=== PATIENT | male | born 1955 | race African-American/Black ===

== ENCOUNTER 2018-05-13 17:16 | Emergency (ER) | payer BC ==
[2018-05-13 17:47] LABS: Bilirubin Negative (Negative); Blood, Urine Negative (Negative); Clarity CLEAR (Clear); Glucose, Urine (Dipstick) Negative (Negative); Leukocyte Negative (Negative); Nitrite Negative (Negative); Protein, Urine (Dipstick) Negative (Neg-Trace); Specific Gravity, Urine 1.004 (1.002-1.036); Urobilinogen 0.2 mg/dL (0.2-1.0); pH, Urine 5.5 (5.0-9.0)
[2018-05-13 18:14] LABS: #Basophils 0.1 thou/uL (0.0-0.2); #Eosinphils 0.1 thou/uL (0.0-0.7); #Lymphocytes 2.4 thou/uL (1.20-3.40); #Monocytes 0.7 thou/uL (0.11-0.59); #Neutrophils 3.2 thou/uL (1.40-6.50); %Basophils 1.1 % (0.0-1.0); %Lymphocytes 37.1 % (21.0-51.0); %Monocytes 10.5 % (0.0-10.0); %Neutrophils 50.3 % (42.0-75.0); Hemoglobin 12.9 g/dL (14.0-18.0); Mean Corpuscular Hemoglobin 29.3 pg (27.0-31.0); Mean Corpuscular Volume 88.9 fL (78.0-98.0); Platelet Count 238 thou/uL (130-400); RBC Distribution Width 12.5 % (11.5-14.5); Red Blood Cell (RBC) Count 4.41 mill/uL (4.70-6.10); White Blood Cell (WBC) Count 6.3 thou/uL (4.8-10.8)
[2018-05-13 18:36] LABS: ALT (SGPT) 31 U/L (8-55); AST (SGOT) 25 U/L (5-34); Albumin 4.2 g/dL (3.4-4.8); Alkaline Phosphatase 30 U/L (40-150); Anion Gap 13 mmol/L (10-20); BUN (Urea Nitrogen) 8 mg/dL (8.4-25.7); Bilirubin, Total 0.5 mg/dL (0.2-1.2); Calc. Creatinine Clearance 0 mL/min (70-130); Calcium 9.3 mg/dL (7.8-10.44); Carbon Dioxide 25 mmol/L (23-31); Chloride 100 mmol/L (98-107); Estimated GFR-MDRD 85; Glucose 87 mg/dL (80-115); Potassium 4.2 mmol/L (3.5-5.1); Protein, Total 7.2 g/dL (5.8-8.1); Sodium 134 mmol/L (136-145)
[2018-05-13 18:41] LABS: Troponin I Less than 0.010 ng/mL (< 0.028)
[2018-05-13] MEDS ORDERED: diphenhydrAMINE 50 MG/ML VIAL ONE (20:59)
[2018-05-13] MEDS ORDERED: Metoclopramide HCl 10 MG/2 ML VIAL ONE (20:59)
--- NOTE | 2018-05-13 22:02 | CT ---
NONCONTRAST HEAD CT: 05/13/18 COMPARISON: 06/11/06. HISTORY: Headache. FINDINGS: No parenchymal hemorrhage. No extra-axial hematoma. No midline shift. Basilar cisterns are patent. Br ain volume slightly less than expected for patient's age. There are extensive white matter hypodensit ies which are nonspecific and may represent chronic small vessel ischemic changes of the white matter . Other etiologies cannot be excluded. Further evaluation with brain MRI is recommended. 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 Cavernous carotid atherosclerosi s. Adequate aeration of the sinuses and mastoid air cells. Intact calvarium. IMPRESSION: 1. Brain volume, less than expected for patient's age. 2. Extensive white matter hypodensities which may represent chronic small vessel ischemic change . Other white matter etiologies cannot be excluded. Consider MRI for further evaluation. POS: JONATHAN
== END 2018-05-13 23:09 | disposition home or self-care (01) ==
LOC: ERS 17:16
DX: R51 Headache (principal); I25.2 Old myocardial infarction; E78.5 Hyperlipidemia, unspecified; I10 Essential (primary) hypertension; I73.9 Peripheral vascular disease, unspecified; Z79.899 Other long term (current) drug therapy; Z79.82 Long term (current) use of aspirin
CPT/HCPCS: 36415; 70450; 80053; 81003; 82553; 84484; 85025; 93005; 96361; 96374; 96375; J1200; J2765

== ENCOUNTER 2018-05-18 09:38 | Emergency (ER) | payer BC ==
[2018-05-18] MEDS ORDERED: Metoclopramide HCl 10 MG/2 ML VIAL ONE (09:54)
[2018-05-18] MEDS ORDERED: diphenhydrAMINE 50 MG/ML VIAL ONE (09:54)
[2018-05-18] MEDS ORDERED: Meclizine HCl 25 MG TAB ONE (11:38)
[2018-05-18] MEDS ORDERED: Promethazine HCl 25 MG/ML VIAL ONE (12:36)
[2018-05-18] MEDS ORDERED: Ketorolac Tromethamine 30 MG/ML VIAL ONE (13:48)
== END 2018-05-18 14:14 | disposition home or self-care (01) ==
LOC: ERS 09:38
DX: R42 Dizziness and giddiness (principal); R51 Headache; I25.2 Old myocardial infarction; E78.5 Hyperlipidemia, unspecified; I10 Essential (primary) hypertension; Z79.82 Long term (current) use of aspirin; Z79.899 Other long term (current) drug therapy
CPT/HCPCS: 96361; 96365; 96375; J1200; J1885; J2550; J2765

== ENCOUNTER 2018-09-01 14:21 | Emergency (ER) | payer MEDICARE, BC ==
--- NOTE | 2018-09-01 16:12 | CT ---
NONCONTRAST CT HEAD: Date: 09/01/18 HISTORY: Dizziness. Headache. COMPARISON: 05/13/18. FINDINGS: Again noted are chronic small vessel ischemic changes and cerebral volume loss, which have not signif icantly progressed when compared to the prior exam. There is no evidence of an acute cortical infarct ion, hemorrhage, mass effect, or midline shift. There are dilated perivascular spaces versus remote l acunar infarctions in the inferior aspect of the left basal ganglia. Ventricular system is normal in size, shape, and position for the degree of sulcal atrophy. There has been no interval change compare d to the prior exam. IMPRESSION: 1. No acute intracranial abnormality is demonstrated. 2. Stable chronic small vessel ischemic changes and cerebral volume loss. 3. Remote lacunar infarctions versus dilated perivascular spaces in the inferior aspect of the left basal ganglia. POS: JONATHAN
[2018-09-01 16:22] LABS: #Basophils 0.1 thou/uL (0.0-0.2); #Eosinphils 0.1 thou/uL (0.0-0.7); #Lymphocytes 1.5 thou/uL (1.20-3.40); #Monocytes 0.6 thou/uL (0.11-0.59); #Neutrophils 3.3 thou/uL (1.40-6.50); %Basophils 1.3 % (0.0-1.0); %Eosinophils 1.1 % (0.0-10.0); %Lymphocytes 26.7 % (21.0-51.0); %Monocytes 10.2 % (0.0-10.0); %Neutrophils 60.6 % (42.0-75.0); Hemoglobin 14.6 g/dL (14.0-18.0); Mean Corpuscular Hemoglobin 28.8 pg (27.0-31.0); Platelet Count 327 thou/uL (130-400); RBC Distribution Width 12.8 % (11.5-14.5); Red Blood Cell (RBC) Count 5.06 mill/uL (4.70-6.10); White Blood Cell (WBC) Count 5.5 thou/uL (4.8-10.8)
[2018-09-01 16:42] LABS: ALT (SGPT) 19 U/L (8-55); AST (SGOT) 19 U/L (5-34); Albumin 4.7 g/dL (3.4-4.8); Alkaline Phosphatase 33 U/L (40-150); Anion Gap 14 mmol/L (10-20); BUN (Urea Nitrogen) 11 mg/dL (8.4-25.7); Bilirubin, Total 0.6 mg/dL (0.2-1.2); Calc. Creatinine Clearance 0 mL/min (70-130); Calcium 10.1 mg/dL (7.8-10.44); Carbon Dioxide 24 mmol/L (23-31); Chloride 100 mmol/L (98-107); Estimated GFR-MDRD 72; Globulin 3.4 g/dL (2.4-3.5); Glucose 95 mg/dL (80-115); Potassium 4.7 mmol/L (3.5-5.1); Protein, Total 8.1 g/dL (5.8-8.1); Sodium 133 mmol/L (136-145)
[2018-09-01 16:44] LABS: CKMB 0.9 ng/mL (0-6.6); Troponin I Less than 0.010 ng/mL (< 0.028)
[2018-09-01 17:29] LABS: Bilirubin Negative (Negative); Blood, Urine Negative (Negative); Clarity CLEAR (Clear); Glucose, Urine (Dipstick) Negative (Negative); Leukocyte Trace (Negative); Nitrite Negative (Negative); Protein, Urine (Dipstick) Negative (Neg-Trace); Specific Gravity, Urine 1.008 (1.002-1.036); Urobilinogen 0.2 mg/dL (0.2-1.0)
[2018-09-01 17:32] LABS: Bacteria/HPF None Seen HPF (None Seen); Hyaline Casts/LPF 0-3 HYALINE CAST LPF (0-3 Hyaline); RBC/HPF None Seen HPF (0-3); Squamous Epithelial None Seen HPF (0-3); WBC/HPF 0-3 HPF (0-3)
== END 2018-09-01 18:21 | disposition home or self-care (01) ==
LOC: ERS 14:21
DX: G45.9 Transient cerebral ischemic attack, unspecified (principal); E87.1 Hypo-osmolality and hyponatremia; I25.2 Old myocardial infarction; E78.5 Hyperlipidemia, unspecified; I10 Essential (primary) hypertension; Z79.82 Long term (current) use of aspirin; Z79.899 Other long term (current) drug therapy
CPT/HCPCS: 36415; 70450; 80053; 81003; 81015; 82553; 84484; 85025; 93005

== ENCOUNTER 2018-09-19 08:21 | Emergency (ER) | payer MEDICARE, BC ==
[2018-09-19 08:58] LABS: #Basophils 0.1 thou/uL (0.0-0.2); #Eosinphils 0.1 thou/uL (0.0-0.7); #Lymphocytes 1.9 thou/uL (1.20-3.40); #Monocytes 0.5 thou/uL (0.11-0.59); #Neutrophils 2.8 thou/uL (1.40-6.50); %Eosinophils 1.5 % (0.0-10.0); %Lymphocytes 35.3 % (21.0-51.0); %Monocytes 8.8 % (0.0-10.0); %Neutrophils 52.5 % (42.0-75.0); Hemoglobin 14.5 g/dL (14.0-18.0); Mean Corpuscular HGB CONC 32.3 g/dL (32.0-36.0); Mean Corpuscular Hemoglobin 28.6 pg (27.0-31.0); Mean Corpuscular Volume 88.6 fL (78.0-98.0); Mean Platelet Volume 7.7 fL (7.4-10.4); Platelet Count 352 thou/uL (130-400); RBC Distribution Width 12.6 % (11.5-14.5); Red Blood Cell (RBC) Count 5.07 mill/uL (4.70-6.10); White Blood Cell (WBC) Count 5.4 thou/uL (4.8-10.8)
[2018-09-19 09:27] LABS: CKMB 0.8 ng/mL (0-6.6); Troponin I Less than 0.010 ng/mL (< 0.028)
[2018-09-19 09:48] LABS: Bilirubin Negative (Negative); Blood, Urine Negative (Negative); Clarity CLEAR (Clear); Glucose, Urine (Dipstick) Negative (Negative); Leukocyte Trace (Negative); Nitrite Negative (Negative); Protein, Urine (Dipstick) Negative (Neg-Trace); Specific Gravity, Urine 1.002 (1.002-1.036); Urobilinogen 0.2 mg/dL (0.2-1.0)
[2018-09-19 09:49] LABS: Bacteria/HPF None Seen HPF (None Seen); Hyaline Casts/LPF 0-3 HYALINE CAST LPF (0-3 Hyaline); RBC/HPF None Seen HPF (0-3); Squamous Epithelial None Seen HPF (0-3); WBC/HPF 0-3 HPF (0-3)
[2018-09-19 09:55] LABS: ALT (SGPT) 15 U/L (8-55); AST (SGOT) 23 U/L (5-34); Albumin 4.4 g/dL (3.4-4.8); Alkaline Phosphatase 33 U/L (40-150); Anion Gap 16 mmol/L (10-20); BUN (Urea Nitrogen) 9 mg/dL (8.4-25.7); Bilirubin, Total 0.4 mg/dL (0.2-1.2); Calc. Creatinine Clearance 0 mL/min (70-130); Calcium 9.6 mg/dL (7.8-10.44); Carbon Dioxide 23 mmol/L (23-31); Chloride 101 mmol/L (98-107); Estimated GFR-MDRD 68; Globulin 3.8 g/dL (2.4-3.5); Glucose 85 mg/dL (80-115); Protein, Total 8.2 g/dL (5.8-8.1); Sodium 135 mmol/L (136-145)
== END 2018-09-19 14:49 | disposition home or self-care (01) ==
LOC: ERS 08:21
DX: R42 Dizziness and giddiness (principal); I25.2 Old myocardial infarction; E78.5 Hyperlipidemia, unspecified; I10 Essential (primary) hypertension; I73.9 Peripheral vascular disease, unspecified; Z79.899 Other long term (current) drug therapy; Z79.82 Long term (current) use of aspirin
CPT/HCPCS: 80053; 81003; 81015; 82553; 84484; 85025; 93005

== ENCOUNTER 2020-11-23 08:11 | Emergency (ER) | payer MEDICARE, BC ==
[2020-11-23] MEDS ORDERED: Meclizine HCl 25 MG TAB ONE (08:31)
--- NOTE | 2020-11-23 08:37 | CT ---
Exam: Head CT without contrast HISTORY: Dizziness, x1 week. Altered mental status COMPARISON: 09/01/2018 FINDINGS: Hemorrhage: No intraparenchymal hemorrhage or extra-axial hematoma. Brain parenchyma: Cortical pat-white matter differentiation is preserved. No mass effect or midline shift. Basilar cisterns are patent.Chronic small vessel ischemic changes white matter. Ventricular system: Ventricles and sulci are patent and symmetric. Calvarium: Intact. Sinuses and mastoid air cells: Adequate aeration. IMPRESSION: No acute intracranial process.
[2020-11-23 09:13] LABS: ALT (SGPT) 16 U/L (8-55); AST (SGOT) 14 U/L (5-34); Albumin 4.1 g/dL (3.4-4.8); Alkaline Phosphatase 42 U/L (40-110); Anion Gap 13 mmol/L (10-20); BUN (Urea Nitrogen) 11 mg/dL (8.4-25.7); Bilirubin, Total 0.3 mg/dL (0.2-1.2); Calc. Creatinine Clearance 0 mL/min (70-130); Calcium 8.9 mg/dL (7.8-10.44); Carbon Dioxide 26 mmol/L (23-31); Chloride 99 mmol/L (98-107); Globulin 3.3 g/dL (2.4-3.5); Glucose 104 mg/dL (80-115); Potassium 4.1 mmol/L (3.5-5.1); Protein, Total 7.4 g/dL (5.8-8.1); Sodium 134 mmol/L (136-145)
[2020-11-23 09:16] LABS: #Basophils 0.1 thou/uL (0.0-0.2); #Eosinphils 0.1 thou/uL (0.0-0.7); #Lymphocytes 1.5 thou/uL (1.20-3.40); #Monocytes 0.7 thou/uL (0.11-0.59); #Neutrophils 2.9 thou/uL (1.40-6.50); %Basophils 1.2 % (0.0-1.0); %Eosinophils 1.7 % (0.0-10.0); %Lymphocytes 28.4 % (21.0-51.0); %Monocytes 12.6 % (0.0-10.0); %Neutrophils 56.1 % (42.0-75.0); Hemoglobin 14.4 g/dL (14.0-18.0); Mean Corpuscular HGB CONC 33.3 g/dL (32.0-36.0); Mean Corpuscular Hemoglobin 29.5 pg (27.0-31.0); Mean Corpuscular Volume 88.7 fL (78.0-98.0); Mean Platelet Volume 7.1 fL (7.4-10.4); Platelet Count 338 thou/uL (130-400); RBC Distribution Width 12.3 % (11.5-14.5); Red Blood Cell (RBC) Count 4.87 mill/uL (4.70-6.10); White Blood Cell (WBC) Count 5.3 thou/uL (4.8-10.8)
== END 2020-11-23 09:37 | disposition home or self-care (01) ==
LOC: ERS 08:11
DX: R42 Dizziness and giddiness (principal); I25.2 Old myocardial infarction; E78.5 Hyperlipidemia, unspecified; I10 Essential (primary) hypertension; Z79.899 Other long term (current) drug therapy; Z79.82 Long term (current) use of aspirin
CPT/HCPCS: 36415; 70450; 80053; 84484; 85025; 93005

== ENCOUNTER 2021-01-24 06:42 | Emergency (ER) | payer MEDICARE, BC ==
[2021-01-24] MEDS ORDERED: Acetaminophen 325 MG TAB ONE (07:04)
== END 2021-01-24 07:15 | disposition home or self-care (01) ==
LOC: ERS 06:42
DX: G89.29 Other chronic pain (principal); M25.562 Pain in left knee; I25.2 Old myocardial infarction; E78.5 Hyperlipidemia, unspecified; E78.00 Pure hypercholesterolemia, unspecified; I10 Essential (primary) hypertension; I73.9 Peripheral vascular disease, unspecified; Z87.19 Personal history of other diseases of the digestive system
CPT/HCPCS: 99281

== ENCOUNTER 2021-10-08 14:43 | Inpatient (IN) | payer MEDICARE, BC ==
[2021-10-08 15:38] LABS: Hemoglobin 11.5 g/dL (14.0-18.0); Mean Corpuscular HGB CONC 34.2 g/dL (32.0-36.0); Mean Corpuscular Hemoglobin 28.2 pg (27.0-31.0); Mean Corpuscular Volume 82.4 fL (78.0-98.0); Red Blood Cell (RBC) Count 4.07 mill/uL (4.70-6.10); White Blood Cell (WBC) Count 18.2 thou/uL (4.8-10.8)
[2021-10-08 15:40] LABS: ALT (SGPT) 30 U/L (8-55); AST (SGOT) 20 U/L (5-34); Albumin 3.8 g/dL (3.4-4.8); Alkaline Phosphatase 91 U/L (40-110); Anion Gap 19 mmol/L (10-20); BUN (Urea Nitrogen) 25 mg/dL (8.4-25.7); Bilirubin, Total 0.9 mg/dL (0.2-1.2); Calc. Creatinine Clearance 0 mL/min (70-130); Calcium 9.6 mg/dL (7.8-10.44); Carbon Dioxide 20 mmol/L (23-31); Chloride 97 mmol/L (98-107); Globulin 4.3 g/dL (2.4-3.5); Glucose 155 mg/dL (80-115); Potassium 4.4 mmol/L (3.5-5.1); Protein, Total 8.1 g/dL (5.8-8.1); Sodium 132 mmol/L (136-145)
[2021-10-08 16:00] LABS: #Basophils 0.1 thou/uL (0.0-0.2); #Eosinphils 0.1 thou/uL (0.0-0.7); #Lymphocytes 1.1 thou/uL (1.20-3.40); %Basophils 0.4 % (0.0-1.0); %Eosinophils 0.4 % (0.0-10.0); %Monocytes 5.2 % (0.0-10.0); Mean Platelet Volume 6.4 fL (7.4-10.4); Platelet Count 1283 thou/uL (130-400); Reflex for Review?? YES
[2021-10-08] MEDS ORDERED: cefTRIAXone\\ROCEPHIN 1 GM VIAL ONE (16:51)
[2021-10-08 17:10] LABS: Bilirubin Negative (Negative); Blood, Urine Trace (Negative); Clarity Turbid (Clear); Glucose, Urine (Dipstick) Normal (Negative); Ketone, Urine Negative (Negative); Leukocyte Negative Leu/uL (Negative); Nitrite Negative (Negative); Protein, Urine (Dipstick) 30 mg/dL (Neg-Trace); RBC/HPF 0-3 HPF (0-3); Squamous Epithelial 0-3 HPF (0-3); WBC/HPF None Seen HPF (0-3)
[2021-10-08 17:11] LABS: Bacteria/HPF 1+ HPF (None Seen)
[2021-10-08 17:15] LABS: Amphetamine Not Detected (NotDetected); Barbiturates Screen Not Detected (NotDetected); Benzodiazepine Screen Not Detected (NotDetected); Cocaine Metabolite Screen Not Detected (NotDetected); Methadone Not Detected (NotDetected); Methamphetamine Not Detected (NotDetected); Opiate Screen Not Detected (NotDetected); Oxycodone Screen Detected (NotDetected); Phencyclidine (PCP) Not Detected (NotDetected); THC/Cannabinoid Screen Not Detected (NotDetected); Tricyclic Screen Not Detected (NotDetected)
[2021-10-08] MEDS ORDERED: Vancomycin 1 GM/200 ML BAG ONE (17:48)
[2021-10-08] MEDS ORDERED: Multivitamins, Adult 10 ML, Thiamine HCl 100 MG, Folic Acid 1 MG in Dextrose 5 %-0.45 %... IV SCH (18:00)
[2021-10-08 18:18] LABS: Lactic Acid 1.8 mmol/L (0.5-2.2)
[2021-10-08 18:19] LABS: #Lymphocytes 0.9 thou/uL (1.20-3.40); #Monocytes 1.1 thou/uL (0.11-0.59); #Neutrophils 16.4 thou/uL (1.40-6.50); %Eosinophils 0.1 % (0.0-10.0); %Monocytes 5.9 % (0.0-10.0); Hemoglobin 9.8 g/dL (14.0-18.0); Mean Corpuscular HGB CONC 32.8 g/dL (32.0-36.0); Mean Corpuscular Hemoglobin 27.5 pg (27.0-31.0); Mean Corpuscular Volume 83.7 fL (78.0-98.0); Mean Platelet Volume 6.3 fL (7.4-10.4); Platelet Count 1131 thou/uL (130-400); RBC Distribution Width 16.1 % (11.5-14.5); Red Blood Cell (RBC) Count 3.57 mill/uL (4.70-6.10); White Blood Cell (WBC) Count 18.4 thou/uL (4.8-10.8)
[2021-10-08] MEDS ORDERED: Bisacodyl 5 MG TAB PO PRN (18:30)
[2021-10-08] MEDS ORDERED: Senokot S 8.6-50 MG TAB PO PRN (18:30)
[2021-10-08] MEDS ORDERED: Ondansetron PF 4 MG/2 ML Vial IVP PRN (18:30)
[2021-10-08] MEDS ORDERED: hydrALAZINE 20 MG/ML VIAL SLOW IVP PRN (18:35)
[2021-10-08] MEDS: Sodium Chloride 0.9% 1,000 ML IV SCH (21:30)
[2021-10-08] MEDS ORDERED: Lorazepam 1 MG TAB PO PRN (21:41)
[2021-10-08] MEDS ORDERED: Lorazepam 2 MG/ML VIAL IM PRN (21:41)
[2021-10-08] MEDS ORDERED: Electrolyte Replacement Protocol 1 EACH FS SCH (21:45)
[2021-10-08 22:23] VITALS: BMI 21.2
[2021-10-08] MEDS ORDERED: Famotidine/PF 20 mg/2ml Vial SLOW IVP SCH (22:30)
[2021-10-08] MEDS ORDERED: Dextrose 50% Abboject 50 ML SYRINGE SLOW IVP PRN (22:40)
[2021-10-08] MEDS ORDERED: Dextrose 5% in Water 1,000 ML IV PRN (22:40)
[2021-10-08] MEDS: Lorazepam 1 MG TAB PO SCH (22:47)
[2021-10-08] MEDS: Famotidine/PF 20 mg/2ml Vial SLOW IVP SCH (22:47)
[2021-10-09 00:07] LABS: #Eosinphils 0.1 thou/uL (0.0-0.7); #Lymphocytes 1.6 thou/uL (1.20-3.40); #Monocytes 1.1 thou/uL (0.11-0.59); #Neutrophils 10.3 thou/uL (1.40-6.50); %Basophils 0.2 % (0.0-1.0); %Eosinophils 0.8 % (0.0-10.0); %Lymphocytes 12.3 % (21.0-51.0); %Monocytes 8.3 % (0.0-10.0); %Neutrophils 78.4 % (42.0-75.0); Hemoglobin 9.2 g/dL (14.0-18.0); Mean Corpuscular HGB CONC 33.5 g/dL (32.0-36.0); Mean Corpuscular Hemoglobin 27.7 pg (27.0-31.0); Mean Corpuscular Volume 82.6 fL (78.0-98.0); Mean Platelet Volume 6.1 fL (7.4-10.4); Platelet Count 970 thou/uL (130-400); RBC Distribution Width 15.7 % (11.5-14.5); Red Blood Cell (RBC) Count 3.31 mill/uL (4.70-6.10); White Blood Cell (WBC) Count 13.1 thou/uL (4.8-10.8)
[2021-10-09 00:10] LABS: ALT (SGPT) 21 U/L (8-55); AST (SGOT) 14 U/L (5-34); Albumin 2.9 g/dL (3.4-4.8); Alkaline Phosphatase 68 U/L (40-110); Anion Gap 11 mmol/L (10-20); BUN (Urea Nitrogen) 15 mg/dL (8.4-25.7); Bilirubin, Direct 0.3 mg/dL (0.1-0.3); Bilirubin, Total 0.5 mg/dL (0.2-1.2); Calc. Creatinine Clearance 65 mL/min (70-130); Calcium 8.5 mg/dL (7.8-10.44); Carbon Dioxide 22 mmol/L (23-31); Chloride 103 mmol/L (98-107); Globulin 3.8 g/dL (2.4-3.5); Glucose 134 mg/dL (80-115); Magnesium 1.9 mg/dL (1.6-2.6); Potassium 3.6 mmol/L (3.5-5.1); Protein, Total 6.7 g/dL (5.8-8.1); Sodium 132 mmol/L (136-145)
[2021-10-09 00:31] LABS: Syphilis Antibody Index 13.56 S/CO (<1.00 Non-Reactive)
[2021-10-09] MEDS: Lorazepam 1 MG TAB PO SCH ×4 (03:43→22:02)
[2021-10-09 05:05] LABS: Reticulocyte Count 1.7 % (0.5-1.5)
[2021-10-09 05:12] LABS: Platelet Count 1059 thou/uL (130-400)
[2021-10-09 05:28] LABS: #Eosinphils 0.1 thou/uL (0.0-0.7); #Lymphocytes 1.3 thou/uL (1.20-3.40); #Monocytes 0.9 thou/uL (0.11-0.59); #Neutrophils 9.3 thou/uL (1.40-6.50); %Basophils 0.3 % (0.0-1.0); %Eosinophils 0.8 % (0.0-10.0); %Lymphocytes 11.3 % (21.0-51.0); %Monocytes 7.7 % (0.0-10.0); %Neutrophils 79.9 % (42.0-75.0); Hemoglobin 9.2 g/dL (14.0-18.0); Mean Corpuscular HGB CONC 32.8 g/dL (32.0-36.0); Mean Corpuscular Hemoglobin 26.9 pg (27.0-31.0); Mean Corpuscular Volume 82.1 fL (78.0-98.0); Mean Platelet Volume 6.3 fL (7.4-10.4); Platelet Morphology Comment Appears Increased; RBC Distribution Width 15.7 % (11.5-14.5); Red Blood Cell (RBC) Count 3.41 mill/uL (4.70-6.10); White Blood Cell (WBC) Count 11.7 thou/uL (4.8-10.8)
[2021-10-09 05:40] LABS: Hemoglobin A1c 5.2 % (4.0-6.0)
[2021-10-09 05:47] LABS: Iron 20 ug/dL (65-175); Iron Binding Capacity, Total 180 mcg/dL (261-462)
[2021-10-09 06:10] LABS: ALT (SGPT) 22 U/L (8-55); AST (SGOT) 16 U/L (5-34); Alkaline Phosphatase 68 U/L (40-110); Anion Gap 13 mmol/L (10-20); BUN (Urea Nitrogen) 13 mg/dL (8.4-25.7); Bilirubin, Total 0.6 mg/dL (0.2-1.2); Calc. Creatinine Clearance 72 mL/min (70-130); Calcium 8.9 mg/dL (7.8-10.44); Carbon Dioxide 22 mmol/L (23-31); Chloride 104 mmol/L (98-107); Cholesterol 105 mg/dl (< 200 Desired); Globulin 3.8 g/dL (2.4-3.5); Glucose 108 mg/dL (80-115); HDL Cholesterol 21 mg/dL (>60 Neg Risk); LDL Cholesterol, Calculated 71 mg/dL; Potassium 3.6 mmol/L (3.5-5.1); Protein, Total 6.8 g/dL (5.8-8.1); Sodium 135 mmol/L (136-145); Triglycerides 67 mg/dL (Less than 150)
[2021-10-09 06:29] LABS: Syphilis Antibody INDETERMINATE (Nonreactive)
[2021-10-09] MEDS ORDERED: Magnesium 2 GM/50 ML 2 GM in Premix Bag 1 BAG IVPB SCH (06:45)
[2021-10-09] MEDS: Sodium Chloride 0.9% 1,000 ML IV SCH (08:25)
[2021-10-09] MEDS: Multivit, Therapeutic 1 TAB PO SCH (08:25)
[2021-10-09] MEDS: Folic Acid 1 MG TAB PO SCH (08:25)
[2021-10-09] MEDS: Acetaminophen 325 MG TAB PO PRN ×3 (11:30→21:57)
[2021-10-09] MEDS: Vancomycin 1 GM in Premix Bag 1 BAG IVPB SCH ×2 (13:08→21:55)
[2021-10-09 14:12] LABS: Amphetamine Not Detected (NotDetected); Barbiturates Screen Not Detected (NotDetected); Benzodiazepine Screen Detected (NotDetected); Cocaine Metabolite Screen Not Detected (NotDetected); Methadone Not Detected (NotDetected); Methamphetamine Not Detected (NotDetected); Opiate Screen Not Detected (NotDetected); Oxycodone Screen Not Detected (NotDetected); Phencyclidine (PCP) Not Detected (NotDetected); THC/Cannabinoid Screen Not Detected (NotDetected); Tricyclic Screen Not Detected (NotDetected)
[2021-10-09] MEDS: Ibuprofen 200 MG TAB PO SCH ×2 (16:00→21:56)
[2021-10-09] MEDS: cefTRIAXone\\ROCEPHIN 1 GM in Sodium Chloride 0.9% 100 ML IVPB SCH (16:01)
[2021-10-09 21:10] LABS: SARS-CoV-2 PCR by NAA Not Detected (NotDetected)
[2021-10-09] MEDS ORDERED: Lorazepam 1 MG TAB PO PRN (21:42)
[2021-10-09] MEDS: Enoxaparin Sodium 40 MG/0.4 ML SYRINGE SC SCH (21:55)
[2021-10-09] MEDS: Thiamine HCl 200 MG/2 ML VIAL SLOW IVP SCH (21:56)
[2021-10-09] MEDS: Famotidine/PF 20 mg/2ml Vial SLOW IVP SCH (22:00)
[2021-10-10] MEDS: Lorazepam 1 MG TAB PO SCH ×3 (03:51→17:27)
[2021-10-10] MEDS: Sodium Chloride 0.9% 1,000 ML IV SCH (06:17)
[2021-10-10] MEDS ORDERED: Magnesium 2 GM/50 ML 2 GM in Premix Bag 1 BAG IVPB SCH (07:45)
[2021-10-10] MEDS: Polyethylene Glycol 3350 17 GM Packet PO SCH (08:03)
[2021-10-10] MEDS: Ibuprofen 200 MG TAB PO SCH ×3 (08:04→20:59)
[2021-10-10] MEDS: Senokot 8.6 MG TAB PO SCH (08:04)
[2021-10-10] MEDS: Multivit, Therapeutic 1 TAB PO SCH (08:04)
[2021-10-10] MEDS: Metoprolol Tartrate 100 MG TAB PO SCH ×3 (08:05→21:08)
[2021-10-10] MEDS: Clopidogrel Bisulfate 75 MG TAB PO SCH (08:05)
[2021-10-10] MEDS: Folic Acid 1 MG TAB PO SCH (08:05)
[2021-10-10] MEDS: Hydrochlorothiazide 25 MG TAB PO SCH (08:06)
[2021-10-10] MEDS: Losartan 25 MG TAB PO SCH (08:06)
[2021-10-10 11:37] LABS: Vancomycin, Trough 12.1 ug/mL
[2021-10-10] MEDS ORDERED: VANCOMYCIN 1.25 GM/250 ML BAG 1.25 GM in Premix Bag 1 BAG IVPB SCH (12:00)
[2021-10-10] MEDS: Vancomycin 1 GM in Premix Bag 1 BAG IVPB SCH (12:16)
[2021-10-10] MEDS: VANCOMYCIN 1.25 GM/250 ML BAG 1.25 GM in Premix Bag 1 BAG IVPB SCH (12:19)
[2021-10-10 12:50] LABS: #Basophils 0.1 thou/uL (0.0-0.2); #Eosinphils 0.1 thou/uL (0.0-0.7); #Monocytes 0.8 thou/uL (0.11-0.59); #Neutrophils 6.3 thou/uL (1.40-6.50); %Basophils 0.9 % (0.0-1.0); %Eosinophils 0.8 % (0.0-10.0); %Lymphocytes 12.1 % (21.0-51.0); %Monocytes 9.2 % (0.0-10.0); Hemoglobin 9.3 g/dL (14.0-18.0); Mean Corpuscular HGB CONC 32.9 g/dL (32.0-36.0); Mean Corpuscular Hemoglobin 27.5 pg (27.0-31.0); Mean Corpuscular Volume 83.5 fL (78.0-98.0); Mean Platelet Volume 6.4 fL (7.4-10.4); Platelet Count 968 thou/uL (130-400); RBC Distribution Width 15.7 % (11.5-14.5); White Blood Cell (WBC) Count 8.2 thou/uL (4.8-10.8)
[2021-10-10 13:05] LABS: Anion Gap 9 mmol/L (10-20); BUN (Urea Nitrogen) 8 mg/dL (8.4-25.7); Calc. Creatinine Clearance 74 mL/min (70-130); Carbon Dioxide 25 mmol/L (23-31); Chloride 103 mmol/L (98-107); Glucose 111 mg/dL (80-115); Potassium 3.5 mmol/L (3.5-5.1); Sodium 133 mmol/L (136-145)
[2021-10-10] MEDS ORDERED: Potassium Chloride 20 MEQ TAB PO SCH (14:00)
[2021-10-10] MEDS: cefTRIAXone\\ROCEPHIN 1 GM in Sodium Chloride 0.9% 100 ML IVPB SCH (17:26)
[2021-10-10 20:41] LABS: Potassium 3.9 mmol/L (3.5-5.1)
[2021-10-10] MEDS: Enoxaparin Sodium 40 MG/0.4 ML SYRINGE SC SCH (20:59)
[2021-10-10] MEDS: Lorazepam 0.5 MG TAB PO SCH ×2 (21:00→21:07)
[2021-10-10] MEDS: Thiamine HCl 200 MG/2 ML VIAL SLOW IVP SCH ×2 (21:00→21:08)
[2021-10-10] MEDS: Atorvastatin Calcium 40 MG TAB PO SCH (21:00)
[2021-10-10] MEDS ORDERED: Lorazepam 1 MG TAB PO PRN (21:42)
[2021-10-11 01:30] LABS: Vancomycin, Trough 14.5 ug/mL
[2021-10-11] MEDS: VANCOMYCIN 1.25 GM/250 ML BAG 1.25 GM in Premix Bag 1 BAG IVPB SCH ×3 (02:28→15:04)
[2021-10-11] MEDS: Lorazepam 0.5 MG TAB PO SCH ×2 (03:39→09:26)
[2021-10-11 05:59] LABS: #Eosinphils 0.1 thou/uL (0.0-0.7); #Lymphocytes 1.4 thou/uL (1.20-3.40); #Monocytes 0.8 thou/uL (0.11-0.59); #Neutrophils 5.7 thou/uL (1.40-6.50); %Basophils 0.3 % (0.0-1.0); %Eosinophils 1.1 % (0.0-10.0); %Lymphocytes 17.6 % (21.0-51.0); %Monocytes 9.5 % (0.0-10.0); %Neutrophils 71.5 % (42.0-75.0); Hemoglobin 9.5 g/dL (14.0-18.0); Mean Corpuscular HGB CONC 32.4 g/dL (32.0-36.0); Mean Corpuscular Hemoglobin 26.6 pg (27.0-31.0); Mean Corpuscular Volume 82.1 fL (78.0-98.0); Mean Platelet Volume 6.3 fL (7.4-10.4); Platelet Count 954 thou/uL (130-400); RBC Distribution Width 15.6 % (11.5-14.5); Red Blood Cell (RBC) Count 3.56 mill/uL (4.70-6.10); White Blood Cell (WBC) Count 7.9 thou/uL (4.8-10.8)
[2021-10-11 06:19] LABS: Anion Gap 9 mmol/L (10-20); BUN (Urea Nitrogen) 6 mg/dL (8.4-25.7); Calc. Creatinine Clearance 82 mL/min (70-130); Calcium 9.3 mg/dL (7.8-10.44); Carbon Dioxide 25 mmol/L (23-31); Chloride 103 mmol/L (98-107); Glucose 91 mg/dL (80-115); Magnesium 1.8 mg/dL (1.6-2.6); Potassium 3.9 mmol/L (3.5-5.1); Sodium 133 mmol/L (136-145)
[2021-10-11] MEDS ORDERED: Magnesium 2 GM/50 ML 2 GM in Premix Bag 1 BAG IVPB SCH (08:45)
[2021-10-11] MEDS ORDERED: FLU VACC QS2021-22(65YR UP)/PF 240 MCG/0.7 ML SYRINGE IM ONE (09:00)
[2021-10-11] MEDS ORDERED: Electrolyte Replacement Protocol FS PRN (09:00)
[2021-10-11] MEDS: Polyethylene Glycol 3350 17 GM Packet PO SCH (09:23)
[2021-10-11] MEDS: Clopidogrel Bisulfate 75 MG TAB PO SCH (09:24)
[2021-10-11] MEDS: Losartan 25 MG TAB PO SCH (09:24)
[2021-10-11] MEDS: Ibuprofen 200 MG TAB PO SCH (09:24)
[2021-10-11] MEDS: Folic Acid 1 MG TAB PO SCH (09:24)
[2021-10-11] MEDS: Multivit, Therapeutic 1 TAB PO SCH (09:24)
[2021-10-11] MEDS: Hydrochlorothiazide 25 MG TAB PO SCH (09:25)
[2021-10-11] MEDS: Metoprolol Tartrate 100 MG TAB PO SCH ×2 (09:25→20:32)
[2021-10-11] MEDS: Senokot 8.6 MG TAB PO SCH (09:25)
[2021-10-11] MEDS ORDERED: Aspirin 81 mg Enteric Coated Tablet PO SCH (12:00)
[2021-10-11] MEDS: Acetaminophen 325 MG TAB PO PRN (12:54)
[2021-10-11] MEDS: cefTRIAXone\\ROCEPHIN 1 GM in Sodium Chloride 0.9% 100 ML IVPB SCH (16:41)
[2021-10-11] MEDS: Atorvastatin Calcium 40 MG TAB PO SCH (20:32)
[2021-10-11] MEDS: Enoxaparin Sodium 40 MG/0.4 ML SYRINGE SC SCH (20:32)
[2021-10-11] MEDS ORDERED: Lorazepam 0.5 MG TAB PO PRN (21:42)
[2021-10-11] MEDS ORDERED: Thiamine 100 MG TAB PO SCH (21:45)
[2021-10-12] MEDS: VANCOMYCIN 1.25 GM/250 ML BAG 1.25 GM in Premix Bag 1 BAG IVPB SCH (00:01)
[2021-10-12 05:41] LABS: #Eosinphils 0.1 thou/uL (0.0-0.7); #Lymphocytes 1.5 thou/uL (1.20-3.40); #Monocytes 0.7 thou/uL (0.11-0.59); #Neutrophils 5.1 thou/uL (1.40-6.50); %Basophils 0.4 % (0.0-1.0); %Eosinophils 0.9 % (0.0-10.0); %Lymphocytes 20.4 % (21.0-51.0); %Neutrophils 68.3 % (42.0-75.0); Hemoglobin 9.6 g/dL (14.0-18.0); Mean Corpuscular HGB CONC 33.1 g/dL (32.0-36.0); Mean Corpuscular Hemoglobin 27.6 pg (27.0-31.0); Mean Corpuscular Volume 83.1 fL (78.0-98.0); Mean Platelet Volume 6.1 fL (7.4-10.4); Platelet Count 954 thou/uL (130-400); RBC Distribution Width 15.7 % (11.5-14.5); Red Blood Cell (RBC) Count 3.48 mill/uL (4.70-6.10); White Blood Cell (WBC) Count 7.4 thou/uL (4.8-10.8)
[2021-10-12 06:29] LABS: Anion Gap 14 mmol/L (10-20); BUN (Urea Nitrogen) 7 mg/dL (8.4-25.7); Calc. Creatinine Clearance 72 mL/min (70-130); Calcium 9.5 mg/dL (7.8-10.44); Carbon Dioxide 22 mmol/L (23-31); Chloride 103 mmol/L (98-107); Glucose 94 mg/dL (80-115); Magnesium 1.9 mg/dL (1.6-2.6); Potassium 3.9 mmol/L (3.5-5.1); Sodium 135 mmol/L (136-145)
[2021-10-12] MEDS ORDERED: Magnesium 2 GM/50 ML 2 GM in Premix Bag 1 BAG IVPB SCH (08:15)
[2021-10-12] MEDS: Polyethylene Glycol 3350 17 GM Packet PO SCH (08:29)
[2021-10-12] MEDS: Losartan 25 MG TAB PO SCH (08:29)
[2021-10-12] MEDS: Clopidogrel Bisulfate 75 MG TAB PO SCH (08:29)
[2021-10-12] MEDS: Aspirin 81 mg Enteric Coated Tablet PO SCH (08:30)
[2021-10-12] MEDS: Senokot 8.6 MG TAB PO SCH (08:30)
[2021-10-12] MEDS: Hydrochlorothiazide 25 MG TAB PO SCH (08:30)
[2021-10-12] MEDS: Metoprolol Tartrate 100 MG TAB PO SCH ×2 (08:30→21:30)
[2021-10-12] MEDS: Atorvastatin Calcium 40 MG TAB PO SCH (21:30)
[2021-10-12] MEDS: Enoxaparin Sodium 40 MG/0.4 ML SYRINGE SC SCH (21:31)
[2021-10-13 06:38] LABS: #Eosinphils 0.1 thou/uL (0.0-0.7); #Lymphocytes 1.7 thou/uL (1.20-3.40); #Monocytes 0.8 thou/uL (0.11-0.59); #Neutrophils 5.3 thou/uL (1.40-6.50); %Basophils 0.1 % (0.0-1.0); %Eosinophils 1.1 % (0.0-10.0); %Lymphocytes 21.4 % (21.0-51.0); %Monocytes 10.4 % (0.0-10.0); Hemoglobin 10.1 g/dL (14.0-18.0); Mean Corpuscular HGB CONC 33.2 g/dL (32.0-36.0); Mean Corpuscular Hemoglobin 27.6 pg (27.0-31.0); Mean Corpuscular Volume 83.1 fL (78.0-98.0); Mean Platelet Volume 6.3 fL (7.4-10.4); Platelet Count 984 thou/uL (130-400); RBC Distribution Width 15.9 % (11.5-14.5); Red Blood Cell (RBC) Count 3.65 mill/uL (4.70-6.10); White Blood Cell (WBC) Count 7.8 thou/uL (4.8-10.8)
[2021-10-13 07:01] LABS: Anion Gap 14 mmol/L (10-20); BUN (Urea Nitrogen) 10 mg/dL (8.4-25.7); Calc. Creatinine Clearance 72 mL/min (70-130); Calcium 9.7 mg/dL (7.8-10.44); Carbon Dioxide 23 mmol/L (23-31); Chloride 100 mmol/L (98-107); Glucose 87 mg/dL (80-115); Magnesium 1.8 mg/dL (1.6-2.6); Potassium 3.9 mmol/L (3.5-5.1); Sodium 133 mmol/L (136-145)
[2021-10-13] MEDS ORDERED: Magnesium 2 GM/50 ML 2 GM in Premix Bag 1 BAG IVPB SCH (07:30)
[2021-10-13] MEDS: Polyethylene Glycol 3350 17 GM Packet PO SCH (08:21)
[2021-10-13] MEDS: Losartan 25 MG TAB PO SCH (08:21)
[2021-10-13] MEDS: Metoprolol Tartrate 100 MG TAB PO SCH (08:21)
[2021-10-13] MEDS: Hydrochlorothiazide 25 MG TAB PO SCH (08:22)
[2021-10-13] MEDS: Clopidogrel Bisulfate 75 MG TAB PO SCH (08:22)
[2021-10-13] MEDS: Aspirin 81 mg Enteric Coated Tablet PO SCH (08:22)
[2021-10-13] MEDS: Senokot 8.6 MG TAB PO SCH (08:44)
[2021-10-13 11:45] VITALS: TEMP 98.2
[2021-10-13 11:50] VITALS: BP 113/69
[2021-10-13 17:13] LABS: A/G Ratio 0.8 (0.7-1.7); Albumin 2.8 g/dL (2.9-4.4); Alpha 1 0.4 g/dL (0.0-0.4); Alpha 2 0.5 g/dL (0.4-1.0); Beta 1.2 g/dL (0.7-1.3); Gamma 1.3 g/dL (0.4-1.8); Globulin, Total 3.4 g/dL (2.2-3.9); M-Spike 0.2 g/dL (Not Observed)
[2021-10-13 17:13] LABS: Albumin-Ur 18.1 % (.); Alpha 1 - Ur 6.7 % (.); Alpha 2 - Ur 10.8 % (.); Beta-Ur 30.7 % (.); Gamma-Ur 33.7 % (.); M-Spike,% Not Observed % (Not Observed); Protein, Urine 5.7 mg/dL (Not Estab.)
== END 2021-10-13 15:59 | DRG 64 ==
LOC: ERS 14:43 → NEURO 18:17 → OBSVTOIN 10-09 14:00
PROVIDERS: ADMIT Internal Medicine; ATTEND Internal Medicine
DX: I63.89 Other cerebral infarction (principal); A41.9 Sepsis, unspecified organism; G93.41 Metabolic encephalopathy; R65.20 Severe sepsis without septic shock; N30.00 Acute cystitis without hematuria; N17.9 Acute kidney failure, unspecified; F10.231 Alcohol dependence with withdrawal delirium; Z20.822 Contact with and (suspected) exposure to COVID-19; I10 Essential (primary) hypertension; I73.9 Peripheral vascular disease, unspecified; E78.5 Hyperlipidemia, unspecified; K27.9 Peptic ulcer, site unspecified, unspecified as acute or chronic, without hemorrhage or perforation; D75.839 Thrombocytosis, unspecified; R73.9 Hyperglycemia, unspecified; D64.9 Anemia, unspecified; I25.10 Atherosclerotic heart disease of native coronary artery without angina pectoris; F03.90 Unspecified dementia, unspecified severity, without behavioral disturbance, psychotic disturbance, mood disturbance, and anxiety; Z96.652 Presence of left artificial knee joint; Z86.73 Personal history of transient ischemic attack (TIA), and cerebral infarction without residual deficits; Z88.6 Allergy status to analgesic agent; Z95.5 Presence of coronary angioplasty implant and graft; Z89.431 Acquired absence of right foot
CPT/HCPCS: 36415; 36416; 70450; 70551; 76705; 80048; 80053; 80061; 80202; 80306; 80307; 81003; 81015; 81270; 82248; 82607; 82728; 82746; 83036; 83540; 83550; 83605; 83615; 83735; 83880; 84100; 84165; 84166; 84484; 85025; 85046; 85060; 86593; 86780; 87040; 87086; 88184; 93005; J0360; J0696; J1650; J2405; J3370; J3411; J3475; J3490; J7042; J7050; S0028; U0003; U0005

== ENCOUNTER 2021-10-16 14:28 | Outpatient (CLI) | payer MEDICARE, BC | END 2021-10-16 14:29 | disposition home or self-care (01) | LOC: RAD 14:28 | DX: I69.391 Dysphagia following cerebral infarction (principal) | CPT/HCPCS: 74230 ==

== ENCOUNTER 2021-10-20 11:45 | Inpatient (IN) | payer MEDICARE, BC ==
[2021-10-20 13:14] LABS: #Eosinphils 0.2 thou/uL (0.0-0.7); #Lymphocytes 1.2 thou/uL (1.20-3.40); #Monocytes 0.4 thou/uL (0.11-0.59); #Neutrophils 8.8 thou/uL (1.40-6.50); %Eosinophils 1.7 % (0.0-10.0); %Lymphocytes 11.4 % (21.0-51.0); %Monocytes 3.8 % (0.0-10.0); %Neutrophils 83.1 % (42.0-75.0); Hemoglobin 11.3 g/dL (14.0-18.0); Mean Corpuscular HGB CONC 30.2 g/dL (32.0-36.0); Mean Corpuscular Hemoglobin 25.5 pg (27.0-31.0); Mean Corpuscular Volume 84.3 fL (78.0-98.0); Mean Platelet Volume 7.6 fL (7.4-10.4); Platelet Count 549 thou/uL (130-400); RBC Distribution Width 15.9 % (11.5-14.5); Red Blood Cell (RBC) Count 4.45 mill/uL (4.70-6.10); White Blood Cell (WBC) Count 10.6 thou/uL (4.8-10.8)
[2021-10-20] MEDS ORDERED: Iopamidol-370 76% 500 ML 1 ML ONE (13:26)
[2021-10-20 13:30] LABS: ALT (SGPT) 18 U/L (8-55); AST (SGOT) 16 U/L (5-34); Alkaline Phosphatase 89 U/L (40-110); Anion Gap 19 mmol/L (10-20); BUN (Urea Nitrogen) 44 mg/dL (8.4-25.7); Bilirubin, Total 0.7 mg/dL (0.2-1.2); Calc. Creatinine Clearance 0 mL/min (70-130); Calcium 10.3 mg/dL (7.8-10.44); Carbon Dioxide 23 mmol/L (23-31); Chloride 101 mmol/L (98-107); Glucose 152 mg/dL (80-115); Lipase 28 U/L (8-78); Potassium 4.5 mmol/L (3.5-5.1); Sodium 138 mmol/L (136-145)
[2021-10-20] MEDS ORDERED: Ondansetron PF 4 MG/2 ML Vial ONE (13:39)
[2021-10-20 16:31] LABS: Bilirubin Negative (Negative); Blood, Urine Negative (Negative); Glucose, Urine (Dipstick) Normal (Negative); Ketone, Urine 20 mg/dL (Negative); Leukocyte 75 Leu/uL (Negative); Nitrite Negative (Negative); Protein, Urine (Dipstick) 30 mg/dL (Neg-Trace); RBC/HPF 0-3 HPF (0-3); Specific Gravity, Urine 1.027 (1.002-1.036); Squamous Epithelial 0-3 HPF (0-3); Urobilinogen Normal mg/dL (Less than 2); pH, Urine 5.5 (5.0-9.0)
[2021-10-20 16:32] LABS: Bacteria/HPF Rare-Few HPF (None Seen); Clarity Cloudy (Clear); Sperm/HPF Rare HPF (None Seen)
[2021-10-20] MEDS ORDERED: cefTRIAXone\\ROCEPHIN 2 GM VIAL ONE (17:43)
[2021-10-20] MEDS ORDERED: Ondansetron ODT 4 MG TAB SL PRN (20:30)
[2021-10-20] MEDS ORDERED: Ondansetron PF 4 MG/2 ML Vial IVP PRN (20:30)
[2021-10-20] MEDS ORDERED: Acetaminophen 325 MG TAB PO PRN (20:30)
[2021-10-20] MEDS ORDERED: Vancomycin 1 GM in Premix Bag 1 BAG IVPB SCH (21:30)
[2021-10-20] MEDS: Sodium Chloride 0.9% 1,000 ML IV SCH (22:23)
[2021-10-20] MEDS ORDERED: Hydroxyurea 500 MG CAP PO SCH (22:45)
[2021-10-20 23:06] VITALS: BMI 17.9
[2021-10-21 05:53] LABS: #Eosinphils 0.1 thou/uL (0.0-0.7); #Lymphocytes 1.6 thou/uL (1.20-3.40); #Monocytes 0.7 thou/uL (0.11-0.59); #Neutrophils 7.1 thou/uL (1.40-6.50); %Basophils 0.3 % (0.0-1.0); %Lymphocytes 16.8 % (21.0-51.0); %Monocytes 7.3 % (0.0-10.0); %Neutrophils 74.6 % (42.0-75.0); Hemoglobin 10.7 g/dL (14.0-18.0); Mean Corpuscular HGB CONC 31.8 g/dL (32.0-36.0); Mean Corpuscular Hemoglobin 26.8 pg (27.0-31.0); Mean Corpuscular Volume 84.2 fL (78.0-98.0); Mean Platelet Volume 7.3 fL (7.4-10.4); Platelet Count 416 thou/uL (130-400); RBC Distribution Width 15.5 % (11.5-14.5); White Blood Cell (WBC) Count 9.5 thou/uL (4.8-10.8)
[2021-10-21 06:07] LABS: Anion Gap 14 mmol/L (10-20); BUN (Urea Nitrogen) 38 mg/dL (8.4-25.7); Calc. Creatinine Clearance 42 mL/min (70-130); Calcium 9.5 mg/dL (7.8-10.44); Carbon Dioxide 24 mmol/L (23-31); Chloride 104 mmol/L (98-107); Glucose 102 mg/dL (80-115); Potassium 3.8 mmol/L (3.5-5.1); Sodium 138 mmol/L (136-145)
[2021-10-21] MEDS ORDERED: FLU VACC QS2021-22(65YR UP)/PF 240 MCG/0.7 ML SYRINGE IM ONE (09:00)
[2021-10-21] MEDS ORDERED: Enoxaparin Sodium 30 MG/0.3 ML SYRINGE SC SCH (09:00)
[2021-10-21] MEDS: Hydroxyurea 500 MG CAP PO SCH ×3 (09:43→20:31)
[2021-10-21 11:08] LABS: SARS-CoV-2 PCR by NAA Not Detected (NotDetected)
[2021-10-21] MEDS ORDERED: Metoprolol Tartrate 100 MG TAB PO SCH (16:30)
[2021-10-21] MEDS ORDERED: Hydrochlorothiazide 25 MG TAB PO SCH (16:30)
[2021-10-21] MEDS ORDERED: Losartan 25 MG TAB PO SCH (16:30)
[2021-10-21] MEDS: Sodium Chloride 0.9% 1,000 ML IV SCH (16:50)
[2021-10-21] MEDS ORDERED: cefTRIAXone\\ROCEPHIN 2 GM in Sodium Chloride 0.9% 100 ML IVPB SCH (18:00)
[2021-10-21] MEDS: Atorvastatin Calcium 40 MG TAB PO SCH (20:31)
[2021-10-21] MEDS ORDERED: Vancomycin HCl 500 MG in Sodium Chloride 0.9% 100 ML IVPB SCH (21:00)
[2021-10-22] MEDS: Sodium Chloride 0.9% 1,000 ML IV SCH ×2 (05:53→14:54)
[2021-10-22 06:05] LABS: Anion Gap 15 mmol/L (10-20); BUN (Urea Nitrogen) 19 mg/dL (8.4-25.7); Calc. Creatinine Clearance 68 mL/min (70-130); Calcium 8.9 mg/dL (7.8-10.44); Carbon Dioxide 20 mmol/L (23-31); Chloride 107 mmol/L (98-107); Glucose 84 mg/dL (80-115); Potassium 3.7 mmol/L (3.5-5.1); Sodium 138 mmol/L (136-145)
[2021-10-22] MEDS: Metoprolol Tartrate 100 MG TAB PO SCH ×2 (09:45→23:03)
[2021-10-22] MEDS: Clopidogrel Bisulfate 75 MG TAB PO SCH (09:46)
[2021-10-22] MEDS: Hydrochlorothiazide 25 MG TAB PO SCH (09:46)
[2021-10-22] MEDS: Losartan 25 MG TAB PO SCH (09:46)
[2021-10-22] MEDS: Hydroxyurea 500 MG CAP PO SCH ×3 (09:47→23:03)
[2021-10-22] MEDS: Enoxaparin Sodium 40 MG/0.4 ML SYRINGE SC SCH (09:47)
[2021-10-22 15:20] LABS: #Basophils 0.1 thou/uL (0.0-0.2); #Eosinphils 0.1 thou/uL (0.0-0.7); #Lymphocytes 1.7 thou/uL (1.20-3.40); #Monocytes 0.5 thou/uL (0.11-0.59); #Neutrophils 6.2 thou/uL (1.40-6.50); %Basophils 0.8 % (0.0-1.0); %Eosinophils 1.3 % (0.0-10.0); %Lymphocytes 19.9 % (21.0-51.0); %Neutrophils 72.1 % (42.0-75.0); Hemoglobin 9.5 g/dL (14.0-18.0); Mean Corpuscular HGB CONC 32.5 g/dL (32.0-36.0); Mean Corpuscular Hemoglobin 27.3 pg (27.0-31.0); Mean Corpuscular Volume 84.2 fL (78.0-98.0); Platelet Count 298 thou/uL (130-400); RBC Distribution Width 15.4 % (11.5-14.5); Red Blood Cell (RBC) Count 3.47 mill/uL (4.70-6.10); White Blood Cell (WBC) Count 8.7 thou/uL (4.8-10.8)
[2021-10-22 20:31] LABS: Vancomycin, Trough 3.8 ug/mL
[2021-10-22] MEDS: Atorvastatin Calcium 40 MG TAB PO SCH (23:03)
[2021-10-23] MEDS: Sodium Chloride 0.9% 1,000 ML IV SCH ×2 (01:37→16:14)
[2021-10-23 05:15] LABS: #Basophils 0.1 thou/uL (0.0-0.2); #Eosinphils 0.1 thou/uL (0.0-0.7); #Lymphocytes 1.5 thou/uL (1.20-3.40); #Monocytes 0.4 thou/uL (0.11-0.59); #Neutrophils 4.6 thou/uL (1.40-6.50); %Eosinophils 1.8 % (0.0-10.0); %Monocytes 5.7 % (0.0-10.0); %Neutrophils 68.5 % (42.0-75.0); Hemoglobin 9.6 g/dL (14.0-18.0); Mean Corpuscular HGB CONC 32.4 g/dL (32.0-36.0); Mean Corpuscular Volume 83.4 fL (78.0-98.0); Mean Platelet Volume 7.8 fL (7.4-10.4); Platelet Count 291 thou/uL (130-400); RBC Distribution Width 15.5 % (11.5-14.5); Red Blood Cell (RBC) Count 3.55 mill/uL (4.70-6.10); White Blood Cell (WBC) Count 6.7 thou/uL (4.8-10.8)
[2021-10-23 05:37] LABS: Anion Gap 11 mmol/L (10-20); BUN (Urea Nitrogen) 12 mg/dL (8.4-25.7); Calc. Creatinine Clearance 70 mL/min (70-130); Calcium 9.1 mg/dL (7.8-10.44); Carbon Dioxide 22 mmol/L (23-31); Chloride 105 mmol/L (98-107); Glucose 89 mg/dL (80-115); Potassium 3.4 mmol/L (3.5-5.1); Sodium 135 mmol/L (136-145)
[2021-10-23] MEDS: Hydroxyurea 500 MG CAP PO SCH ×2 (08:49→16:12)
[2021-10-23] MEDS: Metoprolol Tartrate 100 MG TAB PO SCH (08:49)
[2021-10-23] MEDS: Hydrochlorothiazide 25 MG TAB PO SCH (08:49)
[2021-10-23] MEDS: Clopidogrel Bisulfate 75 MG TAB PO SCH (08:49)
[2021-10-23] MEDS: Losartan 25 MG TAB PO SCH (08:49)
[2021-10-23] MEDS: Enoxaparin Sodium 40 MG/0.4 ML SYRINGE SC SCH (08:50)
[2021-10-23 16:14] VITALS: BP 148/88; TEMP 98.1
== END 2021-10-23 17:30 | disposition home or self-care (01) | DRG 314 ==
LOC: ERS 11:45 → NEURO 18:41 → OBSVTOIN 10-21 08:36
PROVIDERS: ADMIT Internal Medicine; ATTEND Internal Medicine
DX: I95.9 Hypotension, unspecified (principal); G93.41 Metabolic encephalopathy; J96.01 Acute respiratory failure with hypoxia; N17.9 Acute kidney failure, unspecified; N39.0 Urinary tract infection, site not specified; E44.0 Moderate protein-calorie malnutrition; Z68.1 Body mass index [BMI] 19.9 or less, adult; Z20.822 Contact with and (suspected) exposure to COVID-19; I10 Essential (primary) hypertension; K27.9 Peptic ulcer, site unspecified, unspecified as acute or chronic, without hemorrhage or perforation; I73.9 Peripheral vascular disease, unspecified; D75.839 Thrombocytosis, unspecified; E78.5 Hyperlipidemia, unspecified; I25.2 Old myocardial infarction; Z79.899 Other long term (current) drug therapy; Z79.82 Long term (current) use of aspirin; Z95.5 Presence of coronary angioplasty implant and graft; Z89.431 Acquired absence of right foot; I69.920 Aphasia following unspecified cerebrovascular disease
CPT/HCPCS: 36415; 36416; 70450; 71045; 71275; 80048; 80053; 80061; 80202; 81003; 81015; 82533; 83605; 83690; 84484; 85025; 87040; 87086; 93880; 96374; 96375; G0378; J0696; J1650; J2405; J3370; J3490; J7050; Q9967; U0003; U0005